=== PATIENT | male | born 1985 | race Two or more races ===

== ENCOUNTER 2020-10-11 01:35 | Emergency (ER) | payer OTHER ==
[~2020-10-11 01:35] MED LIST: MECLIZINE HCL25 MG PO; MEDROL DOSEPAK 24 MG PO; PHENERGAN 12.12.5 M1 PO
[2020-10-11 04:30] LABS: RED BLOOD COUNT 4.67 M/UL (4.20-5.50); WHITE BLOOD COUNT 9.9 K/UL (4.5-11.0)
[2020-10-11 05:07] LABS: BUN/CREATININE RATIO 17 (0-10)
== END 2020-10-11 06:00 | disposition home or self-care (01) ==
LOC: ER1 01:35
PROVIDERS: Physician Assistant
DX: R10.13 Epigastric pain (principal); R11.2 Nausea with vomiting, unspecified; K21.9 Gastro-esophageal reflux disease without esophagitis; I10 Essential (primary) hypertension; E11.40 Type 2 diabetes mellitus with diabetic neuropathy, unspecified; F17.200 Nicotine dependence, unspecified, uncomplicated
CPT/HCPCS: 71045; 80053; 82550; 82553; 83690; 83874; 84484; 85025; 99285

== ENCOUNTER 2020-12-09 10:39 | Emergency (ER) | payer OTHER ==
[~2020-12-09] VITALS: Ht 175.3 cm; Wt 81.6 kg
[2020-12-09 11:35] LABS: HEMOGLOBIN 15.3 gm/dl (14.0-17.5); RED BLOOD COUNT 4.8 M/UL (4.20-5.50); WHITE BLOOD COUNT 4.6 K/UL (4.5-11.0)
[2020-12-09 12:11] LABS: BUN/CREATININE RATIO 18 (0-10)
[2020-12-09] MEDS ORDERED: ZOFRAN 4 MG TAB4 MG PO (12:46)
== END 2020-12-09 15:18 | disposition home or self-care (01) ==
LOC: ER1 10:39
PROVIDERS: Emergency Medicine
DX: U07.1 COVID-19 (principal); I10 Essential (primary) hypertension; E11.65 Type 2 diabetes mellitus with hyperglycemia; E78.5 Hyperlipidemia, unspecified; F17.200 Nicotine dependence, unspecified, uncomplicated; Z23 Encounter for immunization
CPT/HCPCS: 71045; 80053; 82550; 82553; 83874; 84484; 85025; 85379; 99284; M0243

== ENCOUNTER 2021-03-15 05:07 | Observation (INO) | payer OTHER ==
[~2021-03-15] VITALS: Ht 175.3 cm; Wt 84.8 kg
[~2021-03-15 05:07] MED LIST changes: +ZOFRAN 4 MG TAB4 MG PO
[2021-03-15 05:54] LABS: HEMOGLOBIN 15.4 gm/dl (14.0-17.5); RED BLOOD COUNT 4.89 M/UL (4.20-5.50); WHITE BLOOD COUNT 10.5 K/UL (4.5-11.0)
[2021-03-15 06:20] LABS: BUN/CREATININE RATIO 18 (0-10)
[2021-03-15 06:53] LABS: BORDETELLA PARAPERTUSSIS Not Detected (Not Detectd); BORDETELLA PERTUSSIS Not Detected (Not Detectd); CHLAMYDIA PNEUMONIAE Not Detected (Not Detectd); CORONAVIRUS HKU1 Not Detected (Not Detectd); CORONAVIRUS NL63 Not Detected (Not Detectd); CORONAVIRUS OC43 Not Detected (Not Detectd); CORONOAVIRUS 229E Not Detected (Not Detectd); HUMAN METAPNEUMOVIRUS Not Detected (Not Detectd); HUMAN RHINOVIRUS/ENTEROVIRUS Not Detected (Not Detectd); INFLUENZA A Not Detected (Not Detectd); INFLUENZA B Not Detected (Not Detectd); MYCOPLASMA PNEUMONIAE Not Detected (Not Detectd); PARAINFLUENZA VIRUS 1 Not Detected (Not Detectd); PARAINFLUENZA VIRUS 2 Not Detected (Not Detectd); PARAINFLUENZA VIRUS 3 Not Detected (Not Detectd); PARAINFLUENZA VIRUS 4 Not Detected (Not Detectd); RESPIRATORY SYNCYTIAL VIRUS Not Detected (Not Detectd)
[2021-03-15 08:17] LABS: SARS-CoV-2 NOT DETECTED (Not Detectd)
[2021-03-15] MEDS ORDERED: GABAPENTIN800 MG PO (11:43)
[2021-03-15] MEDS ORDERED: FAMOTIDINE20 MG PO (11:43)
[2021-03-15] MEDS ORDERED: OMEPRAZOLE40 MG PO (11:44)
[2021-03-15] MEDS ORDERED: LISINOPRIL40 MG PO (11:44)
[2021-03-15] MEDS ORDERED: SIMVASTATIN10 MG PO (11:44)
[2021-03-15] MEDS ORDERED: TRESIBA FL100 UNIT/1 SQ (11:44)
[2021-03-15] MEDS ORDERED: HUMALOG100 UNIT/3 SQ (11:45)
[2021-03-15] MEDS ORDERED: VITAMIN D21250 MCG PO (11:45)
[2021-03-16 08:08] LABS: HEMOGLOBIN 13.3 gm/dl (14.0-17.5); RED BLOOD COUNT 4.28 M/UL (4.20-5.50); WHITE BLOOD COUNT 7.7 K/UL (4.5-11.0)
[2021-03-16 08:50] LABS: BUN/CREATININE RATIO 18 (0-10)
== END 2021-03-16 17:57 | disposition home or self-care (01) ==
LOC: ER1 05:07 → CDU 09:30 → MED SURG 4 14:47
PROVIDERS: Emergency Medicine; Physician Assistant Medical; Preventive Medicine Occupational Medicine; ADMIT Internal Medicine
DX: R11.2 Nausea with vomiting, unspecified (principal); K21.9 Gastro-esophageal reflux disease without esophagitis; I10 Essential (primary) hypertension; E78.5 Hyperlipidemia, unspecified; E11.40 Type 2 diabetes mellitus with diabetic neuropathy, unspecified; F17.210 Nicotine dependence, cigarettes, uncomplicated; I95.1 Orthostatic hypotension; Z79.4 Long term (current) use of insulin; E86.0 Dehydration; K92.0 Hematemesis; Z86.16 Personal history of COVID-19; I34.0 Nonrheumatic mitral (valve) insufficiency
CPT/HCPCS: ECHO; 36415; 36600; 70450; 71045; 80048; 80053; 80307; 81001; 82009; 82140; 82550; 82553; 82803; 82962; 83036; 83605; 83690; 83735; 83874; 83880; 84484; 85025; 85027; 85379; 85610; 85652; 85730; 86140; 87040; 87086; 87633; 93005; 93306; C9113; G0378; G0480; J0360; J2405; J7030; Q9967